=== PATIENT | female | born 1990 | race Caucasian/White ===

== ENCOUNTER 2025-01-26 09:55 | Emergency (ER) | payer BC, SELFPAY ==
--- NOTE | 2025-01-26 09:57 | ECG_ITS ---
Test Reason : irreg heartbeat Blood Pressure : */* mmHG Vent. Rate : 74 BPM Atrial Rate : 74 BPM P-R Int : 114 ms QRS Dur : 94 ms QT Int : 372 ms P-R-T Axes : 53 88 63 degrees QTcB Int : 412 ms Normal sinus rhythm with sinus arrhythmia Incomplete right bundle branch block Borderline ECG No previous ECGs available Referred By: Generic ED Physician Electronically Signed By: Landen Godinez
[2025-01-26 10:01] VITALS: BP 137/65; PULSE 81; RESP 16; TEMP 36.6; O2SAT 100; BMI 22.2
--- NOTE | 2025-01-26 10:02 | ED_ITS ---
HPI - General Adult General Chief complaint: Arrhythmia/Palpitations Stated complaint: irregular heartbeat Time Seen by Provider: 01/26/25 11:13 Source: patient Mode of arrival: ambulatory Limitations: no limitations History of Present Illness ED Provider: Dr. Munoz HPI narrative: 34-year-old female presented hospital today for evaluation of palpitations. Patient stated that this has been going on for the past couple of days. No other status worsened when she wakes up in the morning. She denies any hemoptysis trauma recent surgery. Patient states she does have intermittent chest pain in the left side of her chest. Patient stated that she does have palpitation in the past. This was investigated. Workup was largely negative. Patient does endorse caffeine intake. Related Data Allergies Allergy/AdvReac Type Severity Reaction Status Date / Time No Known Allergies Allergy Verified 01/26/25 10:04 Review of Systems 2 Review of Systems: Pertinent review of systems as mentioned in HPI. All other system otherwise negative. [facility] Past Medical History [facility] Narrative: None Social History Social History Advance Directives: No Advance Directives Information Provided: No Physical Exam ED Exam Exam: General: Pleasant, no distress, interacting appropriately Head: Normacephalic, atraumatic ENT: oral mucosa moist, neck supple, no tracheal deviation Cardiovascular: regular rate, regular rhythm, no murmurs, rubbing, gallops Respiratory: CTAB, no wheeze, rales, rhonchi Skin: Warm and dry Psychiatric: Appropriate mood and thoughts Vital Signs: Vital Signs - 24 hr 01/26/25 10:01 Temperature 97.8 F Pulse Rate 81 Respiratory Rate 16 Blood Pressure 137/65 Pulse Oximetry 100 Oxygen Delivery Method Room Air BMI result Body Mass Index 22.2 Course Course Course Narrative: This is an RME: Additional HPI, ROS, PE not included below will be deferred to primary provider. RME assessment and note performed by: Mary Dickerson PA-C This is a [id number]-female who presents to the ER with a complaint of palpitations which started 2-3 days. Symptoms start when she wakes up in the morning. Reports that she had similar symptoms about 10 years ago, but states that they could not diagnose her with anything. Reports that last week she went for a run and states that she was more winded than normal. Just returned from [facility]. No other recent travels, surgeries, hospitalizations. No hx of blood clots or cancer hx. She is not on control. Plan: Labs, EKG, further ER eval needed Medical Decision Making Medical Decision Making [facility] Narrative: 34-year-old female presented hospital today for intermittent palpitations. Troponins negative. EKG shows normal sinus rhythm with sinus arrhythmia. Patient electrolytes are normal. TSH is normal. No sign of severe anemia. Patient is PERC out. No tachycardia no controls. No history of DVT or PE in the past. No hemoptysis no surgeries or recent trauma. Low suspicion for pulmonary embolism due to intermittent nature of her symptoms. We will plan to discharge patient does time have her follow up with her primary care doctor. Patient agrees and understands this plan. Instruct her to decrease her caffeine intake. Differential Diagnosis Differential Diagnoses: The differential diagnosis associated with the presentation includes WPW, SVT, palpitation, dehydration, POTS Lab Data [facility] Lab Attestation statement: I reviewed the patient's lab results. 01/26/25 10:19 01/26/25 10:19 Labs: Lab Results 01/26/25 Range/Units 10:19 WBC 8.3 (4.8-10.8) X10*3/uL RBC 4.31 (4.20-5.50) X10*6/uL Hgb 13.5 (12.0-16.0) g/dl Hct 40.4 (37.0-47.0) % MCV 93.7 (80.0-98.0) fL MCH 31.3 (27.0-33.0) pg MCHC 33.4 (31.0-35.0) g/dl RDW 11.7 (11.0-16.0) % Plt Count 343 (160-400) X10*3/uL MPV 9.4 (9.4-12.3) fL Immature Gran % (Auto) 0.2 (0.0-0.4) % Neut % (Auto) 70.3 (45-73) % Lymph % (Auto) 18.9 L (20-40) % Bond % (Auto) 7.7 (2-11) % Eos % (Auto) 1.9 (0-4) % Baso % (Auto) 1.0 (0-2) % Lymph # (Auto) 1.6 (1.2-4.9) X10*3/uL Bond # (Auto) 0.6 (0.1-1.2) X10*3/uL Eos # (Auto) 0.2 (0.0-0.4) X10*3/uL Baso # (Auto) 0.1 (0.0-0.2) X10*3/uL Abs Immat Gran (auto) 0.02 (0.00-0.03) X10*3/uL Absolute Neuts (auto) 5.8 (2.0-8.3) x10*3/uL Absolute Nucleated RBC 0.000 (0.0-0.012) X10*3/uL Nucleated RBC % (auto) 0.0 (0.0-0.2) /100WBC PT 12.1 (11.2-13.5) SEC INR 1.0 (0.9-1.1) Sodium 139 (135-145) mmol/L Potassium 4.4 (3.3-5.1) mmol/L Chloride 107 (96-108) mmol/L Carbon Dioxide 29 (22-29) mmol/L Anion Gap 7 L (12-20) BUN 7 L (9-16) mg/dL Creatinine 0.70 (0.5-1.4) mg/dL Estim Creat Clear Calc 91.9 Estimated GFR > 60 Random Glucose 88 (60-115) mg/dL Calcium 9.0 (8.4-10.2) mg/dL Magnesium 2.0 (1.6-2.6) mg/dL Total Bilirubin 0.4 (0.0-1.0) mg/dL Direct Bilirubin 0.1 (0.0-0.5) mg/dL AST 27 (5-31) U/L ALT 18 (0-31) U/L Alkaline Phosphatase 49 (39-117) U/L Troponin I High Sens < 2.7 (<3.5-17.0) ng/L Total Protein 7.4 (6.5-8.0) g/dL Albumin 4.4 (3.5-5.0) g/dL TSH 2.11 (0.32-4.0) uIU/mL Beta HCG, Quant < 2 mIU/mL Independent Interpretation I performed an independent interpretation of an: EKG Discharge Plan Discharge Clinical Impression: Palpitations Patient Disposition: Home, Self-Care Instructions: Heart Palpitations (ED) Additional Instructions: For your labwork we checked your blood counts, Thyroid, Electrolytes. These are normal. Please follow up with your primary care doctor. You can inquire if a Holter monitor is appropriate for you. Cut back on Caffeine intake. Print Language: Mozambican
[2025-01-26 10:24] LABS: MANUAL DIFF FLAG NO
[2025-01-26 10:26] LABS: Hematocrit 40.4 % (37.0-47.0); Hemoglobin 13.5 g/dl (12.0-16.0); Imm Gran Abs Auto 0.02 X10*3/uL (0.00-0.03); Imm Gran Pct Auto 0.2 % (0.0-0.4); Lymphocytes Absolute Auto 1.6 X10*3/uL (1.2-4.9); Mean Corpuscular HGB Conc 33.4 g/dl (31.0-35.0); Mean Corpuscular Hemoglobin 31.3 pg (27.0-33.0); Mean Corpuscular Volume 93.7 fL (80.0-98.0); NRBC Abs Auto 0.000 X10*3/uL (0.0-0.012); NRBC Pct Auto 0.0 /100WBC (0.0-0.2); Platelet Count 343 X10*3/uL (160-400); Red Blood Count 4.31 X10*6/uL (4.20-5.50); White Blood Count 8.3 X10*3/uL (4.8-10.8)
[2025-01-26 10:33] LABS: INTERNATIONAL NORM RATIO 1.0 (0.9-1.1); Prothrombin Time 12.1 SEC (11.2-13.5)
[2025-01-26 10:51] LABS: Alanine Aminotransferase 18 U/L (0-31); Albumin Level 4.4 g/dL (3.5-5.0); Alkaline Phosphatase 49 U/L (39-117); Anion Gap 7 (12-20); Aspartate Amino Transferase 27 U/L (5-31); Blood Urea Nitrogen 7 mg/dL (9-16); Calcium 9.0 mg/dL (8.4-10.2); Carbon Dioxide 29 mmol/L (22-29); Chloride 107 mmol/L (96-108); Creatinine Clr Calc Pharmacy 91.9; Estimated Glomerular Filt Rate > 60; Magnesium 2.0 mg/dL (1.6-2.6); Potassium 4.4 mmol/L (3.3-5.1); Sodium 139 mmol/L (135-145); Total Protein 7.4 g/dL (6.5-8.0)
[2025-01-26 10:53] LABS: Troponin-I High Sensitivity < 2.7 ng/L (<3.5-17.0)
[2025-01-26 11:59] VITALS: BP 137/65; PULSE 81; RESP 16; TEMP 36.6; O2SAT 100
--- OUTSIDE RECORDS SUMMARY | 2025-01-26 12:46 | XMS_ITS | Clinical Summary ---
Author Organization [facility] Address [address] [address] Phone Care Team Providers Care General House Worker Name Role Phone Unknown, Unknown Primary Care Provider [place] bradford Allergies No known active allergies Medications No known medications Social History Tobacco Use Types Packs/Day Years Used Date Smoking Tobacco: Never Smokeless Tobacco: Never Alcohol Use Standard Drinks/Week Comments Never 0 (1 standard drink = 0.6 oz pur e alcohol) Education Answer Date Recorded Are you interested in more education? Not on linda e 06/30/2022 Are you concerned about learning? Not on file 06/30/2022 No 06/30/2022 No 06/30/2022 Digital Access Answer Date Recorded No 07/28/2022 No 07/28/2022 No 07/28/2022 Reliable internet access at home? Not on file 07/28/2022 Device with a working camera? Not on file Comments Unknown Sex and Gender Information Value Date Recorded Sex Assigned at Female 11/25/2018 2:14 PM EDT Legal Sex Female 9:06 PM EDT Gender Identity Female 11/25/2018 2:14 PM EDT Sexual Orientation Lesbian or Coy 11/25/2018 2: 14 PM EDT Last Filed Vital Signs Vital Sign Reading Time Taken Comments Blood Pressure 111/74 11/25/2018 2:33 PM EDT Pulse 71 11/25/2018 2:33 PM EDT Temperature 36.8 C (98.2 F) 11/25/2018 2:33 PM EDT Respiratory Rate - - Oxygen Saturation 99% 11/25/2018 2:33 PM EDT Inhaled Oxygen Concentration - - Weight 56.2 kg (123 lb 12.8 oz) 11/25/2018 2:33 PM EDT Height 160 cm (5' 3 ) 11/25/2018 2:33 PM EDT Body Mass Index 21.93 11/25/2018 2:33 PM EDT Plan of Treatment Health Maintenance Due Date Last Done Comments Adult Td,Tdap Booster 1988 DEPRESSION SCREENING 2000 HEPATITIS C SCREENING 2006 HIV ONE-TIME SCREENING (18-6 5 YEARS) 2006 PAP SMEAR 2009 INFLUENZA VACCINE (#1) 2024 01/04/2020 COVID-19 VACCINE (3 - 2024-2 6 season) 2024 07/16/2020, 06/25/2020 SMOKING STATUS SCREENING (On ce After 26 Yrs) Completed 11/25/2018 HEPATITIS A VACCINES Aged Out No long er eligible based on patient's age to complete this topic HIB VACCINES Aged Out No longer eligi ble based on patient's age to complete this topic MENINGOCOCCAL VACCINES (ACWY) Aged Out No longer eligible based on patient's age to complete this topic MENINGOCOCCAL VACCINES (B) Aged Out N o longer eligible based on patient's age to complete this topic PNEUMOCOCCAL VACCINES (0-49 years) Aged Out No longer eligible b ased on patient's age to complete this topic Medical Devices Not on file Insurance [facility] HMO POS [place] HMO POS #[address] [place] [address] [facility] POS [place] [address] [address] HMO POS [facility] HMO POS Care Teams General House Worker Relationship Specialty Start Date End Date Unknown, Unknown, PCP - General 11/25/18 Additional Source Comments The information contained in this document represents components of the legal health record. It is not the complete legal health record.[facility]
== END 2025-01-26 12:09 | disposition home or self-care (01) ==
PROVIDERS: Physician Assistant Medical; Emergency Provider Student in an Organized Health Care Education/Training Program
DX: R00.2 Palpitations (principal); R07.9 Chest pain, unspecified; I45.4 Nonspecific intraventricular block
CPT/HCPCS: 36415; 80048; 80076; 83735; 84443; 84484; 84702; 85025; 85610; 93005; 99283

== ENCOUNTER → 2025-01-26 09:57 | Outpatient (BNV) | payer BC, SELFPAY | PROVIDERS: Emergency Provider Student in an Organized Health Care Education/Training Program; Visit Provider Internal Medicine Cardiovascular Disease | DX: I45.10 Unspecified right bundle-branch block (principal) | CPT/HCPCS: 93010 ==